=== PATIENT | male | born 1985 | race African-American/Black ===

== ENCOUNTER 2017-12-29 20:30 | Emergency (ER) | payer BC, OTHER ==
[2017-12-29] MEDS ORDERED: DIAZEPAM INJ 10 MG/2 ML DISP.SYRIN IM ONE (22:58)
[2017-12-29] MEDS ORDERED: HYDROMORPHONE HCL INJ/PF 2 MG/ML AMPULE IM ONE ×2 (22:58→22:59)
[2017-12-29 23:54] VITALS: BP 139/82
[2017-12-29] MEDS ORDERED: HYDROCODONE/ACETAMINOPHEN 5-325 MG (6 TAB/ER DISP) PO PRN (23:59)
--- NOTE | 2017-12-29 23:59 | ER Document Report ---
ED General - General Chief Complaint: Back Pain Stated Complaint: BACK PAIN Time Seen by Provider: 12/29/17 22:46 Notes: Patient is a 32-year-old male presents with complaint of low back pain without radiation to his legs. Patient says had this off and on several times since being in the . This started after his outside in the yard moving things. Said he was lifting heavy objects. He denies any blunt trauma to his back. Denies any recent fevers or infections. No loss of bowel control. No urinary retention. No weakness or numbness into his legs. No other complaints at this time. TRAVEL OUTSIDE OF THE [place] IN LAST 30 DAYS: No - Related Data Allergies/Adverse Reactions: No Known Allergies Allergy (Verified 12/29/17 22:52) Past Medical History - Social History Smoking Status: Unknown if Ever Smoked Frequency of alcohol use: None Drug Abuse: None Family History: DM, Hypertension Patient has suicidal ideation: No Patient has homicidal ideation: No Renal/ Medical History: Denies: Hx Peritoneal Dialysis Musculoskeltal Medical History: Reports Hx Musculoskeletal Trauma Traumatic Medical History: Reports: Hx Spine Fracture - neck - Immunizations Immunizations up to date: Yes Hx Diphtheria, Pertussis, Tetanus Vaccination: Yes Review of Systems - Review of Systems Notes: My Normal Review Basic REVIEW OF SYSTEMS: CONSTITUTIONAL : Denies fever, chills, or sweats. Denies recent illness RESPIRATORY: Denies cough, cold, or chest congestion. Denies shortness of breath, difficulty breathing, or wheezing. GASTROINTESTINAL: Denies abdominal pain. Denies nausea, vomiting, or diarrhea. Denies constipation. Last BM: GENITOURINARY: Denies difficulty urinating, painful urination, burning, frequency, or blood in urine. MUSCULOSKELETAL: Back pain SKIN: Denies rash or skin lesions. NEUROLOGICAL: Denies sensory or motor loss. ALL OTHER SYSTEMS REVIEWED AND NEGATIVE. Physical Exam - Vital signs Vitals: Temp Pulse Resp BP Pulse Ox 98.5 F 96 20 143/82 H 95 12/29/17 20:42 12/29/17 20:42 12/29/17 20:42 12/29/17 20:42 12/29/17 20:42 - Notes Notes: General Appearance: Well nourished, alert, cooperative, no acute distress, moderate obvious discomfort. Vitals: reviewed, See vital signs table. Head: no swelling or tenderness to the head Eyes: PERRL, EOMI, Conjuctiva clear Abdomen: Normal BS, soft, No rigidity, No abdominal tenderness, No guarding, no rebound, Back: Patient has pain is very easily reproduced palpation over the lumbar paraspinal musculature bilaterally. No pain over the thoracic spine sick paraspinal muscular. Extremities: strength 5/5 in all extremities, good pulses in all extremities, no swelling or tenderness in the extremities, no edema. Skin: warm, dry, appropriate color, no rash Neuro: speech clear, oriented x 3, normal affect, responds appropriately to questions. Good strength with plantar dorsiflexion against resistance. Normal distal sensation. Patellar reflexes are 2 out of 4 and equal bilaterally. Course - Re-evaluation Re-evalutation: 12/30/17 05:23 Patient's pain relieved with half milligram Dilaudid and 5 mg Valium. I suspect he most likely had paraspinal muscular spasm based on location of his pain in on exam. Will discharge patient home with prescription for Valium encouraged her return to ER immediately if he has severe worsening pain, loss of bowel control, urine retention, leg weakness or numbness, fevers, or if he feels that his symptoms are worsening. Patient agrees with plan will be discharged home. Dictation of this chart was performed using voice recognition software; therefore, there may be some unintended grammatical errors. - Vital Signs Vital signs: Temp Pulse Resp BP Pulse Ox 97.8 F 77 14 139/82 H 97 12/29/17 23:49 12/29/17 23:49 12/29/17 23:49 12/29/17 23:49 12/29/17 23:49 Discharge - Discharge Clinical Impression: Back pain Qualifiers: Back pain location: low back pain Chronicity: acute Back pain laterality: bilateral Sciatica presence: without sciatica Qualified Code(s): M54.5 - Low back pain Condition: Good Disposition: HOME, SELF-CARE Instructions: Oral Narcotic Medication ([facility]) Additional Instructions: Please return to the ER immediately if you develop loss of bowel control, are retaining urine, leg weakness, leg numbness, fevers, or feel unwell. Please still move around throughout the day, but avoid heavy lifting. Do not drive or operate machinery if you take the Valium or [place]. Please take Motrin 600mg in combination with Tylenol 500mg every 6 hours. Take with food. Prescriptions: Diazepam [Valium 5 mg Tablet] 5 mg PO BIDP PRN #8 tablet PRN Reason: back spasm Forms: Special Work Note, Return to Work
== END 2017-12-30 00:19 | disposition home or self-care (01) ==
LOC: ER 20:30
DX: M54.5 Low back pain (principal); X50.0XXA Overexertion from strenuous movement or load, initial encounter; Y93.89 Activity, other specified; Z87.81 Personal history of (healed) traumatic fracture
CPT/HCPCS: 99283; 96372; J3360; J1170